=== PATIENT | male | born 1990 | race African-American/Black ===

== ENCOUNTER 2023-05-22 21:34 | Emergency (ER) | payer SELFPAY ==
[~2023-05-22] VITALS: Ht 175.3 cm; Wt 91.0 kg
[2023-05-22 21:42] VITALS: TEMP 98.7; O2SAT 100
[2023-05-23] MEDS ORDERED: KETOROLAC 15MG/ML VIAL IM ONE
[2023-05-23] MEDS ORDERED: AMOX1TAB16 MT (00:11)
[2023-05-23 00:31] VITALS: BP 138/81; PULSE 66; RESP 14
== END 2023-05-23 00:32 | disposition home or self-care (01) ==
LOC: ER 21:34
DX: K04.7 Periapical abscess without sinus (principal)
CPT/HCPCS: 99283; Z7610; J1885